=== PATIENT | male | born 1990 | race American Indian/Alaskan Native ===

== ENCOUNTER 2020-08-31 10:14 | Emergency (ER) | payer SELFPAY ==
--- NOTE | 2020-08-31 10:35 | EDM.PDOC ---
ED HPI GENERAL MEDICAL PROBLEM - General Stated Complaint: MEDICATION COMPLICATIONS Time Seen by Provider: 08/31/20 10:17 Source of Information: Reports: Patient History Limitations: Reports: No Limitations - History of Present Illness INITIAL COMMENTS - FREE TEXT/NARRATIVE: HISTORY AND PHYSICAL: History of present illness: Patient is a 29-year-old male who presents to the ED today with concern of medi cation reaction to haloperidol. Patient states he was started on haloperidol 2 days ago 5 mg by his psychiatrist as patient has been "hearing voices "and other medications have not been working. Patient states he has taken the medication for the past 2 days and was morning felt like he was having bilateral facial drooping and "altered sensation "of his face and tongue. Patient states that this is patient states that he does have a brain MRI scheduled for making him "talk funny ". Patient states that he called his psychiatrist and was told to take a dose of Benadryl. Patient states he took 1 tab of Benadryl and is no longer having the facial drooping sensation but is still having the altered sensation of his tongue and is still "talking funny ". Patient states that this is patient states that he does have a brain MRI scheduled for Wednesday due to onset of hearing voices that has been scheduled by his primary care provider. Patient denies any homicidal or suicidal ideations. Patient denies fever, chills, chest pain, shortness of breath, or cough. Denies headache, neck stiff ness, change in vision, syncope, or near syncope. Denies nausea, vomiting, abdominal pain, diarrhea, constipation, or dysuria. Has not noted any blood in urine or stool. Patient has been eating and drinking appropriately. Review of systems: As per history of present illness and below otherwise all systems reviewed and negative. Past medical history: As per history of present illness and as reviewed below otherwise noncontributory. Surgical history: As per history of present illness and as reviewed below otherwise noncontributory. Social history: See social history for further information Family history: As per history of present illness and as reviewed below otherwise noncontributory. Physical exam: General: Patient is alert, oriented, and in no acute distress. Patient sitting comfortably on exam table. Stable and reviewed by me. HEENT: No lip edema, tongue edema, or oropharyngeal edema. No stridor. Atraumatic, normocephalic, pupils equal and reactive bilaterally, negative for conjunctival pallor or scleral icterus, mucous membranes moist, TMs normal bilaterally, throat clear, neck supple, nontender, trachea midline. No drooling or trismus noted but voice is muffled. No meningeal signs. Lungs: Clear to auscultation, breath sounds equal bilaterally, chest nontender. Heart: S1S2, regular rate and rhythm without overt murmur Abdomen: Soft, nondistended, nontender. Negative for masses or hepatosplenomegaly. Negative for costovertebral tenderness. Pelvis: Stable nontender. Genitourinary: Deferred. Rectal: Deferred. Skin: Intact, warm, dry. No lesions or rashes noted. Extremities: Atraumatic, negative for cords or calf pain. Neurovascular unremarkable. Neuro: Awake, alert, oriented. Cranial nerves II through XII unremarkable. Cerebellum unremarkable. Motor and sensory unremarkable throughout. Exam nonfocal. Notes: Dr. Lawton directly involved in patient care. I did speak to patient's psychiatric provider, Xochitl Bonds, [id number], and thoroughly discussed patient's case. She has been seeing patient over the past several months. She states that patient was recently started on haloperidol 2 days ago and had spoke to him this morning about dyskinesia side effects. She states that patient has been placed on haloperidol after trial of several other medications due to auditory hallucinations. She states that patient's hallucinations have not been serious and have not been causing him to have suicidal, homicidal, or reactionary responses according to Xochitl Huff. She states that patient will be safe to not take any medications until he can be seen on Wednesday for further medication management with either herself or Dr. Lamb. She states to have patient set up/establish an appointment time for Wednesday for reevaluation of medications. After receiving Benadryl, patient expresses complete resolution of symptoms. He no longer has a muffled speech and speaking in clear sentences. He never had any edema of the oropharynx, no tongue edema, no lip edema, no stridor and remained vitally stable throughout stay in ED. Discussed with patient stopping haloperidol medication until he can be further evaluated by the psychiatrist. Instructed patient to call and establish an appointment time for Wednesday for medication reevaluation with either Dr. Lamb or Xochitl Bonds [employer]. Strict return precautions thoroughly discussed with patient. Also discussed taking Benadryl scheduled for the next 3 days to prevent return of symptoms. Voices understanding and is agreeable to plan of care. Denies any further questions or concerns at this time. Diagnostics: CBC, CMP Therapeutics: Benadryl 50mg IV Prescription: None Impression: Oral dyskinesia Plan: 1. Stop taking Haloperidol until you can get further instruction from your psychiatrist on medication management as discussed. 2. Take Benadryl 50mg by mouth for the next 3 days scheduled as directed and as discussed. 3. Follow up with your psychiatrist as discussed. Return to the ED as needed and as discussed. Definitive disposition and diagnosis as appropriate pending reevaluation and r colleeniew of above. 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 ED EXAM, GENERAL - Physical Exam Exam: See Below (See dictation) Course - Vital Signs Last Recorded V/S: Last Vital Signs Temp 97.3 F 08/31/20 10:35 Pulse 64 08/31/20 11:11 Resp 16 08/31/20 11:11 BP 111/82 08/31/20 11:11 Pulse Ox 98 08/31/20 11:11 - Orders/Labs/Meds Labs: Laboratory Tests 08/31/20 08/31/20 Range/Units 11:00 11:00 WBC 10.33 (4.0-11.0) K/uL RBC 5.14 (4.50-5.90) M/uL Hgb 15.4 (13.0-17.0) g/dL Hct 45.7 (38.0-50.0) % MCV 88.9 (80.0-98.0) fL MCH 30.0 (27.0-32.0) pg MCHC 33.7 (31.0-37.0) g/dL RDW Std Deviation 43.1 (28.0-62.0) fl RDW Coeff of Kerrie 13 (11.0-15.0) % Plt Count 352 (150-400) K/uL MPV 9.40 (7.40-12.00) fL Neut % (Auto) 72.2 (48.0-80.0) % Lymph % (Auto) 21.4 (16.0-40.0) % [place] % (Auto) 2.9 (0.0-15.0) % Eos % (Auto) 3.1 (0.0-7.0) % Baso % (Auto) 0.4 (0.0-1.5) % Neut # (Auto) 7.5 H (1.4-5.7) K/uL Lymph # (Auto) 2.2 (0.6-2.4) K/uL [place] # (Auto) 0.3 (0.0-0.8) K/uL Eos # (Auto) 0.3 (0.0-0.7) K/uL Baso # (Auto) 0.0 (0.0-0.1) K/uL Nucleated RBC % 0.0 /100WBC Nucleated RBCs # 0 K/uL Sodium 140 (136-148) mmol/L Potassium 4.3 (3.5-5.1) mmol/L Chloride 105 (98-107) mmol/L Carbon Dioxide 26.2 (21.0-32.0) mmol/L BUN 10 (7.0-18.0) mg/dL Creatinine 1.0 (0.8-1.3) mg/dL Est Cr Clr Drug Dosing 120.71 mL/min Estimated GFR (MDRD) > 60.0 ml/min Glucose 89 (74-106) mg/dL Calcium 8.9 (8.5-10.1) mg/dL Total Bilirubin 0.3 (0.2-1.0) mg/dL AST 18 (15-37) IU/L ALT 28 (14-63) IU/L Alkaline Phosphatase 75 (46-116) U/L Total Protein 7.7 (6.4-8.2) g/dL Albumin 3.8 (3.4-5.0) g/dL Globulin 3.9 (2.6-4.0) g/dL Albumin/Globulin Ratio 1.0 (0.9-1.6) Meds: Medications Discontinued Medications Generic Name Dose Route Start Last Admin Trade Name Freq PRN Reason Stop Dose Admin Diphenhydramine HCl 50 mg 08/31/20 10:43 08/31/20 10:53 Benadryl IVPUSH 08/31/20 10:44 50 mg ONETIME ONE Administration Departure - Departure Time of Disposition: 11:32 Disposition: Home, Self-Care 01 Clinical Impression: Oral dyskinesia - Discharge Information Instructions: Dystonic Reaction Referrals: PCP,None [Primary Care Provider] - Forms: ED Department Discharge Additional Instructions: The following information is given to patients seen in the emergency department who are being discharged to home. This information is to outline your options for follow-up care. We provide all patients seen in our emergency department with a follow-up referral. The need for follow-up, as well as the timing and circumstances, are variable depending upon the specifics of your emergency department visit. If you don't have a primary care physician on staff, we will provide you with a referral. We always advise you to contact your personal physician following an emergency department visit to inform them of the circumstance of the visit and for follow-up with them and/or the need for any referrals to a consulting specialist. The emergency department will also refer you to a specialist when appropriate. This referral assures that you have the opportunity for follow-up care with a specialist. All of these measure are taken in an effort to provide you with optimal care, which includes your follow-up. Under all circumstances we always encourage you to contact your private physician who remains a resource for coordinating your care. When calling for follow-up care, please make the office aware that this follow-up is from your recent emergency room visit. If for any reason you are refused follow-up, please contact the [facility] Emergency Department at and asked to speak to the emergency department charge nurse. [facility] Primary Care [address] [place] [id number] [facility] [address] [place] [address] 1. Stop taking Haloperidol until you can get further instruction from your psychiatrist on medication management as discussed. 2. Take Benadryl 50mg by mouth for the next 3 days scheduled as directed and as discussed. 3. Follow up with your psychiatrist as discussed. Return to the ED as needed and as discussed. Sepsis Event Note (ED) - Focused Exam Vital Signs: Vital Signs Temp Pulse Resp BP Pulse Ox 08/31/20 11:11 64 16 111/82 98 08/31/20 10:35 97.3 F 73 16 111/62 99
[2020-08-31] MEDS ORDERED: diphenhydrAMINE 50 MG/ML SDV IVPUSH ONE (10:43)
[2020-08-31 11:29] LABS: BLOOD UREA NITROGEN,BUN 10 mg/dL (7.0-18.0); CARBON DIOXIDE,CO2 26.2 mmol/L (21.0-32.0); CHLORIDE,CL 105 mmol/L (98-107); GLUCOSE RANDOM 89 mg/dL (74-106); POTASSIUM,K 4.3 mmol/L (3.5-5.1); SODIUM,NA 140 mmol/L (136-148)
[2020-08-31 12:35] VITALS: BP 106/62; PULSE 75
== END 2020-08-31 11:45 | disposition home or self-care (01) ==
LOC: MW.ED 10:14
DX: G24.4 Idiopathic orofacial dystonia (principal)
CPT/HCPCS: 80053; 85025; 96374; 99283; J1200

== ENCOUNTER 2022-02-20 07:39 | Emergency (ER) | payer OTHER ==
[2022-02-20] MEDS ORDERED: Tetracaine HCl/PF 0.5% 4 ML Bottle EYEBOTH STA (07:51)
[2022-02-20 07:54] VITALS: BP 131/76; PULSE 81
== END 2022-02-20 08:20 | disposition home or self-care (01) ==
LOC: MW.ED 07:39
DX: T15.81XA Foreign body in other and multiple parts of external eye, right eye, initial encounter (principal); Z88.5 Allergy status to narcotic agent
CPT/HCPCS: 65205; 65210; 99282; 99283-25

== ENCOUNTER 2022-11-24 08:52 | Emergency (ER) | payer SELFPAY ==
[2022-11-24 11:36] LABS: C. TRACHOMATIS BY PCR NOT DETECTED; N. GONORRHOEAE BY PCR NOT DETECTED
[2022-11-24 12:24] VITALS: BP 126/75; PULSE 95
== END 2022-11-24 12:16 | disposition home or self-care (01) ==
LOC: MW.ED 08:52
DX: N50.811 Right testicular pain (principal); Z72.0 Tobacco use; Z88.8 Allergy status to other drugs, medicaments and biological substances
CPT/HCPCS: 76870; 76870-26; 81001; 87491; 87591; 93976; 93976-26; 99283; 99284

== ENCOUNTER 2023-07-06 17:03 | Emergency (ER) | payer BC ==
[2023-07-06] MEDS ORDERED: Tenecteplase 50 MG Kit IVPUSH ONE (17:15)
[2023-07-06] MEDS ORDERED: Iopamidol 755 MG/ML 500 ML Multipack Bottle IVPUSH STA (17:37)
[2023-07-06 17:49] LABS: BASOPHILS ABSOLUTE AUTO 0.06 K/uL (0.00-0.20); BASOPHILS PERCENT AUTO 0.4 % (0.0-1.0); EOSINOPHILS ABSOLUTE AUTO 0.09 K/uL (0.00-0.45); EOSINOPHILS PERCENT AUTO 0.6 % (0.0-6.0); HEMOGLOBIN 16.4 g/dL (14.0-18.0); IMMATURE GRAN ABSOLUTE AUTO 0.04 K/uL (0.00-0.05); IMMATURE GRAN PERCENT AUTO 0.3 % (0.0-0.4); LYMPHOCYTES ABSOLUTE AUTO 2.85 K/uL (1.00-4.80); LYMPHOCYTES PERCENT AUTO 20.5 % (24.0-44.0); MEAN CORPUSCULAR HEMOGLOBIN 29.7 pg (28.0-32.0); MEAN CORPUSCULAR HGB CONC 35.7 g/dL (32.0-36.0); MEAN CORPUSCULAR VOLUME 83.2 fL (83.0-99.0); MEAN PLATELET VOLUME 9.2 fL (9.4-12.4); MONOCYTES ABSOLUTE AUTO 0.57 K/uL (0.00-0.80); MONOCYTES PERCENT AUTO 4.1 % (0.0-8.0); NEUTROPHILS ABSOLUTE AUTO 10.3 K/uL (1.8-7.7); NEUTROPHILS PERCENT AUTO 74.1 % (41.0-71.0); PLATELET COUNT,PLT 419 K/uL (150-400); RED BLOOD CELL COUNT 5.53 M/uL (4.52-5.90); WHITE BLOOD CELL COUNT,WBC 13.89 K/uL (3.9-11.3)
[2023-07-06 17:57] LABS: INR 0.98 (0.86-1.11)
[2023-07-06 18:14] LABS: ALANINE AMINOTRANSFERASE,ALT 36 IU/L (14-63); ALBUMIN 4.3 g/dL (3.4-5.0); ALKALINE PHOSPHATASE 102 U/L (46-116); ASPARTATE AMNIOTRANSFERASE,AST 22 IU/L (15-37); BILIRUBIN TOTAL 0.4 mg/dL (0.2-1.0); BLOOD UREA NITROGEN,BUN 13 mg/dL (7.0-18.0); CALCIUM 8.9 mg/dL (8.5-10.1); CARBON DIOXIDE,CO2 26.3 mmol/L (21.0-32.0); CHLORIDE,CL 101 mmol/L (98-107); CREATININE 1.2 mg/dL (0.8-1.3); ETHANOL BLOOD MEDICAL <3 mg/dL; GLUCOSE RANDOM 93 mg/dL (74-106); POTASSIUM,K 3.4 mmol/L (3.5-5.1); PROTEIN TOTAL,TP 8.7 g/dL (6.4-8.2); SODIUM,NA 138 mmol/L (136-148)
[2023-07-06 18:22] LABS: ESTIMATED GFR 83 mL/min (>60)
[2023-07-07 08:56] VITALS: BP 149/89; PULSE 93
== END 2023-07-06 18:55 | disposition home or self-care (01) ==
LOC: MW.ED 17:03
DX: G81.92 Hemiplegia, unspecified affecting left dominant side (principal); Z88.8 Allergy status to other drugs, medicaments and biological substances
CPT/HCPCS: 36415; 70450; 70496; 70498; 80053; 80307; 84484; 85025; 85610; 85730; 93005; 99285; Q9967